=== PATIENT | female | born 1945 | race Caucasian/White ===

== ENCOUNTER 2017-03-03 12:09 | Emergency (ER) | payer MEDICARE, BC ==
[~2017-03-03 12:09] MED LIST: ALDACTONE100 MG; ALDACTONE100 MG PO; ASPIRIN325 MG; ATIVAN0.5 MG PO; AUGMENTIN1 TAB.SR . PO; BACTRIM DS TABL1 TAB PO; BUSPAR15 MG/TAB PO; CARAFATE1 G; CLEOCIN HCL150 MG; FLECAINIDE ACET50 MG; HYDROCHLOROTHIA50 MG; HYDROCHLOROTHIA50 MG PO; INDERAL LA160 MG; INDERAL80 MG PO; IRON1 TAB; K-DUR20 ME1 PO; KLOR-CON M2020 MEQ PO; LISINOPRIL10 MG PO; NASONEX17 GM; NASONEX17 GM NS; NORVASC5 MG PO; POTASSIUM CHLO20 MEQ; PRILOSEC20 MG; PRILOSEC20 MG PO; SIMVASTATIN40 MG PO; SYNTHROID75 MCG; SYNTHROID75 MCG PO; TAMBOCOR50 MG PO; ZOCOR40 MG; [UNRECOGNIZED DRUG - REMARK]
[2017-03-03] MEDS ORDERED: AUGMENTIN 875-1 EAC2 PO (12:44)
[2017-03-03] MEDS ORDERED: FLECAINIDE ACET50 M1 PO (12:44)
[2017-03-03] MEDS ORDERED: MEDROL4 M2 PO (12:46)
[2017-03-03] MEDS ORDERED: OMEPRAZOLE20 M3 PO (12:47)
[2017-03-03] MEDS ORDERED: ATORVASTATIN CA20 M1 PO (12:47)
[2017-03-03] MEDS ORDERED: PROPRANOLOL HCL60 M1 PO (12:48)
[2017-03-03] MEDS ORDERED: LASIX20 M1 PO (12:48)
[2017-03-03] MEDS ORDERED: AMLODIPINE BESYL5 MG PO (12:49)
[2017-03-03] MEDS ORDERED: POTASSIUM CHLO20 ME3 PO (12:49)
[2017-03-03] MEDS ORDERED: SYNTHROID75 MC1 PO (12:49)
[2017-03-03] MEDS ORDERED: PROLIA60 MG/1 M1 SC (13:17)
[2017-03-03] MEDS ORDERED: CALTRATE 600 +1 EAC2 PO (13:17)
[2017-03-03] MEDS ORDERED: CENTRUM SILVER1 EAC6 PO (13:17)
[2017-03-03 13:32] LABS: BASO % 0.5 % (0-2); EOS % 1.3 % (0-7); EOSINOPHIL ABSOLUTE COUNT 0.1 tho/cmm (0.0-0.7); HCT-HEMATOCRIT 39.7 % (34.0-49.0); HGB-HEMOGLOBIN 14.1 gm/dl (12.0-15.5); IMMATURE GRANULOCYTES ABSOLUTE 0.01 tho/cmm (0-0.03); IMMATURE GRANULOCYTES PERCENT 0.2 % (0-0.3); LYMPH % 18.6 % (20-45); LYMPH ABSOLUTE COUNT 1.1 tho/cmm (0.8-4.5); MCH (MEAN CORPUSCULAR HGB) 32.8 pg (28.0-32.0); MCHC MEAN CORPUSCULAR HGB CONC 35.5 % (32.0-36.0); MCV (MEAN CELL VOLUME) 92.3 fl (82.0-96.0); MEAN PLATELET VOLUME 10.8 cmc (9.4-12.4); MONO % 8.9 % (0-12); MONOCYTE ABSOLUTE COUNT 0.5 tho/cmm (0.0-1.2); NEUTROPHIL ABSOLUTE COUNT 4.3 tho/cmm (1.6-8.0); NEUTROPHIL-AUTOMATED 4.3 tho/cmm (1.6-8.0); NEUTROPHILS % 70.5 % (40-80); PLATELET COUNT 226 tho/cmm (150-450); RED CELL DISTRIBUTION WIDTH 12.9 % (12.4-16.4); WHITE BLOOD COUNT 6.1 tho/cmm (4.0-10.0)
[2017-03-03 13:49] LABS: ANION GAP 14 mmol/L (0-20); BLOOD UREA NITROGEN 7 mg/dl (6-24); CALCIUM 8.4 mg/dl (8.5-10.5); CARBON DIOXIDE-VENOUS 25 mmol/L (22-32); CHLORIDE 95 mmol/l (96-110); CREATININE 0.53 mg/dl (0.50-1.10); GLUCOSE 98 mg/dL (70-110); POTASSIUM 3.9 mmol/L (3.7-5.1); SODIUM 130 mmol/L (135-145); eGFR VALUE FOR BLACK >90 mL/Min
== END 2017-03-03 14:49 ==
LOC: EDMED 12:09
PROVIDERS: Emergency Medicine
DX: E87.1 Hypo-osmolality and hyponatremia (principal); R42 Dizziness and giddiness; R55 Syncope and collapse; I10 Essential (primary) hypertension; G43.909 Migraine, unspecified, not intractable, without status migrainosus; Z90.710 Acquired absence of both cervix and uterus; Z98.890 Other specified postprocedural states; Z79.899 Other long term (current) drug therapy